=== PATIENT | male | born 1945 | race African-American/Black ===

== ENCOUNTER 2017-07-22 10:54 | Emergency (ER) | payer MEDICARE ==
[~2017-07-22] VITALS: Ht 182.9 cm; Wt 82.0 kg
[2017-07-22 11:51] VITALS: BP 174/87
[2017-07-22] MEDS ORDERED: BACITRACIN ZINC OINT UDPKT TOP ONE ×2 (13:00)
[2017-07-22] MEDS ORDERED: TETANUS, DIPHTHERIA, PERTUSSIS VAC/PF 0.5ML (>7YR OLD) IM ONE (14:15)
== END 2017-07-22 14:20 | disposition home or self-care (01) ==
LOC: ER 13:05
DX: S80.11XA Contusion of right lower leg, initial encounter (principal); I10 Essential (primary) hypertension; W01.0XXA Fall on same level from slipping, tripping and stumbling without subsequent striking against object, initial encounter; Y93.89 Activity, other specified; Y92.89 Other specified places as the place of occurrence of the external cause; Y99.8 Other external cause status
CPT/HCPCS: 73590; 90471; 90715; 99284